=== PATIENT | male | born 1990 | race Caucasian/White ===

== ENCOUNTER 2018-09-13 18:02 | Emergency (ER) | payer OTHER ==
[2018-09-13 18:57] VITALS: BP 147/91; PULSE 74; RESP 16; TEMP 98.3
[2018-09-13] MEDS ORDERED: KETOROLAC 60 MG/2 ML VIAL IM STA (19:39)
--- NOTE | 2018-09-13 19:40 | ED ---
General Adult HPI - General Chief complaint: Extremity Injury, Upper Stated complaint: arm pain Time Seen by Provider: 09/13/18 19:15 Source: patient, RN notes reviewed, old records reviewed Mode of arrival: ambulatory Limitations: no limitations - History of Present Illness Initial comments: 28-year-old male patient with no pertinent past medical history presents to ED with a left biceps strain. Patient reports that approximately 3 days. He was lifting weights, patient denies any acute injury, denies any popping or pain during weight lifting. Patient reports that the next 2 days he had soreness in his proximal bicep region. Patient denies any other complaints today. Patient does still full active range of motion of left upper extremity. Patient denies any other complaints. Systemic: Pt denies fatigue, fever/chills, rash. Pt denies weakness, night sweats, weight loss. Neuro: Pt denies headache, visual disturbances, syncope or pre-syncope. HEENT: Pt denies ocular discharge or irritation, otalgia, rhinorrhea, pharyngitis or notable lymphadenopathy. Cardiopulmonary: Pt denies chest pain, SOB, heart palpitations, dyspnea on exertion. Abdominal/GI: Pt denies abdominal pain, n/v/d. : Pt denies dysuria, burning w/ urination, frequency/urgency. Denies new onset urinary or bowel incontinence. MSK: Pt denies loss of strength or function in extremities. Neuro: Pt denies new onset weakness, paresthesias. - Related Data Previous Rx's Medication Instructions Recorded Ibuprofen [Motrin] 600 mg PO Q6HR PRN #40 day 09/13/18 Allergies Allergy/AdvReac Type Severity Reaction Status Date / Time No Known Allergies Allergy Verified 09/13/18 18:57 Review of Systems ROS Statement: Those systems with pertinent positive or pertinent negative responses have been documented in the HPI. ROS Other: All systems not noted in ROS Statement are negative. Past Medical History Past Medical History: No Reported History History of Any Multi-Drug Resistant Organisms: None Reported Additional Past Surgical History / Comment(s): JAW SURGERY Past Psychological History: No Psychological Hx Reported Smoking Status: Current every day smoker Past Alcohol Use History: None Reported Past Drug Use History: None Reported General Exam - General Exam Comments Initial Comments: Constitutional: NAD, AOX3, Pt has pleasant affect. HEENT: NC/AT, trachea midline, neck supple, no lymphadenopathy. Posterior pharynx non erythematous, without exudates. External ears appear normal, without discharge. Mucous membranes moist. Eyes PERRLA, EOM intact. There is no scleral icterus. No pallor noted. Cardiopulmonary: RRR, no murmurs, rubs or gallops, no JVD noted. Lungs CTAB in anterior and posterior tineo. No peripheral edema. Abdominal exam: Abdomen soft and non-distended. Abdomen non-tender to palpation in all 4 quadrants. Bowel sounds active in LLQ. No hepatosplenomegaly. No ecchymosis Neuro: CN II-XII grossly intact. No nuchal rigidity. MSK: Sensation intact in upper and lower extremities. Full active ROM in upper and lower extremities, 5/5 stregnth in right upper extremity, 4/5 stregnth in left upper extremity. No posterior calf tenderness bilaterally, homans sign negative bilaterally. Posterior tibialis and radial pulse +2 bilaterally. Limitations: no limitations Course Vital Signs 09/13/18 18:55 Temperature 98.3 F Pulse Rate 74 Respiratory 16 Rate Blood Pressure 147/91 O2 Sat by Pulse 100 Oximetry Medical Decision Making - Medical Decision Making 28-year-old male patient with no pertinent past medical history presents to ED with a left biceps strain. Patient reports that approximately 3 days. He was lifting weights, patient denies any acute injury, denies any popping or pain during weight lifting. Patient reports that the next 2 days he had soreness in his proximal bicep region. Patient denies any other complaints today. Patient does still full active range of motion of left upper extremity. Patient denies any other complaints. Patient vital signs stable, afebrile. Physical exam displayed: Sensation intact in upper and lower extremities. Full active ROM in upper and lower extremities, 5/5 stregnth in right upper extremity, 4/5 stregnth in left upper extremity. Patient received Toradol. Patient to follow up with primary care provider in 1-2 days. Patient given orthopedic referral symptoms persist. Patient in ER condition worsens. Case discussed with Dr. Ragsdale. Disposition Clinical Impression: Muscle strain Disposition: HOME SELF-CARE Condition: Stable Instructions (If sedation given, give patient instructions): Muscle Strain (ED) Additional Instructions: Patient to adhere to previously discussed treatment plan and will take medication(s) as directed. Patient to follow up with PCP in 1-2 days. Patient to return to ED if symptoms do not improve. Please use ibuprofen as needed for pain and inflammation. Please follow-up with primary care provider in 1-2 days. Orthopedic consult provided symptoms cont inue. Return to ER condition worsens or new signs or symptoms develop. Prescriptions: Ibuprofen [Motrin] 600 mg PO Q6HR PRN #40 day PRN Reason: Pain Is patient prescribed a controlled substance at d/c from ED?: No Referrals: None,Stated [Primary Care Provider] - 1-2 days Shady Zhang MD [STAFF PHYSICIAN] - 1-2 days
== END 2018-09-13 19:54 | disposition home or self-care (01) ==
LOC: EC 18:02
DX: S46.212A Strain of muscle, fascia and tendon of other parts of biceps, left arm, initial encounter (principal); F17.200 Nicotine dependence, unspecified, uncomplicated; X58.XXXA Exposure to other specified factors, initial encounter
CPT/HCPCS: 99283; 96372; J1885